=== PATIENT | male | born 1950 | race Two or more races ===

== ENCOUNTER 2019-03-04 14:11 | Emergency (ER) | payer OTHER ==
[~2019-03-04] VITALS: Ht 167.6 cm; Wt 77.1 kg
[2019-03-04] MEDS ORDERED: MAXITROL EYE DRO5 ML OP (16:45)
== END 2019-03-04 16:58 | disposition home or self-care (01) ==
LOC: ER 14:11
DX: H10.89 Other conjunctivitis (principal)

== ENCOUNTER 2019-03-18 14:43 | Emergency (ER) | payer OTHER ==
[~2019-03-18] VITALS: Ht 167.6 cm; Wt 77.1 kg
[~2019-03-18 14:43] MED LIST: MAXITROL EYE DRO5 ML OP
== END 2019-03-18 18:44 | disposition home or self-care (01) ==
LOC: ER 14:43
DX: H54.62 Unqualified visual loss, left eye, normal vision right eye (principal)

== ENCOUNTER 2019-04-03 08:17 | Inpatient (IN) | payer OTHER ==
[~2019-04-03] VITALS: Ht 167.6 cm; Wt 77.1 kg
[2019-04-03] MEDS ORDERED: CAPOTEN100 MG (08:27)
[2019-04-03] MEDS ORDERED: LANTUS SOL100 UNIT/1 (08:27)
--- NOTE | 2019-04-03 08:32 | NUR ---
PTE ALERTA Y ORIENTADO X 3 ESFERAS, EN COMPANIA DE FAMILIAR LLEGA EN [place] DE [place], FAMILIAR REFIERE DOLOR DE ESPALDA BAJA HACE APROXIMADAMENTE 2 SEMANAS, MALESTAR GENERAL, POCO APETITO Y QUE PTE DUERME MUCHO. PTE INDICA ZAC SIDO OPERADO DE LOS OJOS Y SE ENCUENTRA EN TX. AMPUTACION DE PIERNA RT. SE UBICA EN EMPERATRIZ DE ESPERA.
--- NOTE | 2019-04-03 15:17 | NUR ---
SE ORIENTA AL PACIENTE SOBRE MEDICAMENTO. PACIENTE REFIERE ENTENDER. SE PROVEE EL MEDICAMENTO Y SE OBSERVA AL PACIENTE POR CAMBIOS EN CONDICION.
--- NOTE | 2019-04-03 15:50 | NUR ---
SE ORIENTA AL PACIENTE SOBRE FOLLEY INSERTION. PACIENTE REFIERE ENTENDER. SE LE INSERTA EL FOLLEY AL PACIENTE UTILIZANDO MEDIDAS ASEPTICAS Y SE VERIFICA LA PATENTICIDAD DE LA MISMA. FOLLEY CATETHER PATENTE Y DRENANDO ORINA "CLOUDY".
[2019-04-10] MEDS ORDERED: HYDRALAZINE HCL50 MG PO (17:59)
[2019-04-10] MEDS ORDERED: NIFEDIPINE ER30 MG PO (17:59)
[2019-04-10] MEDS ORDERED: FAMOTIDINE20 MG PO (17:59)
== END 2019-04-10 18:06 | disposition home or self-care (01) | DRG 699 ==
LOC: ER 08:17 → SURH 14:36 → MEDJ 04-06 10:34
PROVIDERS: Radiology Vascular & Interventional Radiology; ADMIT Internal Medicine
PROC: BT43ZZZ Ultrasonography of Bilateral Kidneys (ICD-10-PCS; 2019-04-03)
PROC: 0T9B70Z Drainage of Bladder with Drainage Device, Via Natural or Artificial Opening (ICD-10-PCS; 2019-04-03)
PROC: 05HM33Z Insertion of Infusion Device into Right Internal Jugular Vein, Percutaneous Approach (ICD-10-PCS; 2019-04-05)
PROC: 0JHD3XZ Insertion of Tunneled Vascular Access Device into Right Upper Arm Subcutaneous Tissue and Fascia, Percutaneous Approach (ICD-10-PCS; principal; 2019-04-05 16:00)
PROC: 5A1D70Z Performance of Urinary Filtration, Intermittent, Less than 6 Hours Per Day (ICD-10-PCS; 2019-04-06)
DX: E11.22 Type 2 diabetes mellitus with diabetic chronic kidney disease (principal); I12.0 Hypertensive chronic kidney disease with stage 5 chronic kidney disease or end stage renal disease; N18.6 End stage renal disease; N17.8 Other acute kidney failure; I73.89 Other specified peripheral vascular diseases; E11.319 Type 2 diabetes mellitus with unspecified diabetic retinopathy without macular edema; E11.65 Type 2 diabetes mellitus with hyperglycemia; R31.0 Gross hematuria; Z79.4 Long term (current) use of insulin; Z99.2 Dependence on renal dialysis

== ENCOUNTER 2019-08-30 07:19 | Emergency (ER) | payer OTHER ==
[~2019-08-30] VITALS: Ht 167.6 cm; Wt 79.8 kg
[~2019-08-30 07:19] MED LIST changes: +CAPOTEN100 MG; +FAMOTIDINE20 MG PO; +HYDRALAZINE HCL50 MG PO; +LANTUS SOL100 UNIT/1; +NIFEDIPINE ER30 MG PO
== END 2019-08-30 11:39 | disposition home or self-care (01) ==
LOC: ER 07:19
DX: T82.49XA Other complication of vascular dialysis catheter, initial encounter (principal); I10 Essential (primary) hypertension